=== PATIENT | female | born 1980 | race Caucasian/White ===

== ENCOUNTER 2023-02-02 14:32 | Emergency (ER) | payer BC, SELFPAY ==
[2023-02-02] VITALS (64 sets, daily range): BP systolic 89–147; BP diastolic 52–119; PULSE 71–102; RESP 14–23; TEMP 36.6; O2SAT 81–98; BMI 44.3
--- NOTE | 2023-02-02 14:34 | CT_ITS ---
[address] [address] Patient Name: СЕРГЕЙ LY MRN: [id number] date: 1980 Sex: F Assigned Patient Location: ER Current Patient Location: ER Accession/Order Number: [id number] Exam Date: 02/02/2023 15:14 Report Date: 02/02/2023 15:47 At the request of: ZHANE REES Procedure: CT abdomen pelvis w con EXAMINATION: CT abdomen pelvis w con HISTORY: abd pain COMPARISON: No relevant comparison available. TECHNIQUE: Axial, Coronal, and Sagittal images were created without IV contrast. Dose reduction techniques were achieved by using automated exposure control and/or adjustment of mA and/or kV according to patient size and/or use of iterative reconstruction technique. FINDINGS: LUNG BASES: No visible pulmonary or pleural disease. LIVER: Diffuse hypoattenuation consistent with hepatic steatosis. No focal mass BILIARY: Gallbladder wall calcification PANCREAS: No lesion, fluid collection, ductal dilatation, or atrophy. SPLEEN: No enlargement or focal lesion. ADRENALS: No mass or enlargement. KIDNEYS: No mass, obstruction, or calcification. BOWEL/MESENTERY: Wall thickening of the mid sigmoid colon with a focal partially circumscribed 5.6 x 3.6 cm heterogeneous fluid collection second smaller well-circumscribed fluid collection adjacent to the now measuring 2.1 x 1.3 cm axial image 134. Moderate colonic diverticulosis. Nonobstructive bowel gas pattern. Normal appendix. AORTA/VASCULAR: No aneurysm or dissection. RETROPERITONEUM: No mass or adenopathy. LYMPH NODES: No adenopathy. URINARY BLADDER: No visible focal wall thickening, lesion, or calculus. PELVIC ORGANS: 2.8 x 2.6 cm fluid collection adjacent to the left uterus/adnexa possibly an adnexal cyst ABDOMINAL WALL: No mass or hernia. BONES: No bony lesion or fracture. OTHER: Negative. CT/CT abdomen pelvis w con IMPRESSION: Acute diverticulitis with perforation and 5.6 cm abscess collection Electronically authenticated by: MAXWELL SANCHEZ Date: 02/02/2023 15:47
[2023-02-02 15:13] LABS: Basophils Absolute Auto 0.1 10^3/uL (0.0-0.1); Basophils Percent Auto 1.1 % (0.2-2.0); Eosinophils Absolute Auto 0.3 10^3/uL (0.0-0.7); Eosinophils Percent Auto 3.2 % (0.9-7.0); Hematocrit 41.4 % (36.0-48.0); Hemoglobin 13.6 g/dL (12.0-16.0); Immature Granulocytes Abs Auto 0.07 10^3/uL (0.00-0.03); Immature Granulocytes Pct Auto 0.7 % (0.0-0.5); Lymphocytes Absolute Auto 2.6 10^3/uL (1.2-3.8); Lymphocytes Percent Auto 24.9 % (20.5-60.0); Mean Corpuscular HGB Conc 32.9 g/dL (29.9-35.2); Mean Corpuscular Hemoglobin 29.4 pg (26.7-34.0); Mean Corpuscular Volume 89.4 fL (81.0-99.0); Mean Platelet Volume 9.5 fL (9.5-13.5); Monocytes Absolute Auto 0.6 10^3/uL (0.3-0.8); Monocytes Percent Auto 6.1 % (1.7-12.0); Neutrophils Absolute Auto 6.7 10^3/uL (1.4-6.5); Platelet Count 238 10^3/uL (150-450); Red Blood Count 4.63 10^6/uL (4.20-5.40); White Blood Count 10.4 10^3/uL (4.0-11.0)
[2023-02-02 15:26] LABS: Alanine Aminotransferase 11 U/L (14-59); Albumin Globulin Ratio 0.8; Albumin Level 3.3 g/dL (3.4-5.0); Alkaline Phosphatase 90 U/L (46-116); Anion Gap 11.7; Aspartate Amino Transferase 20 U/L (15-37); BUN Creatinine Ratio 11.8; Bilirubin Total 0.7 mg/dL (0.2-1.0); Calcium 9.2 mg/dL (8.5-10.1); Carbon Dioxide 26.2 mmol/L (21.0-32.0); Chloride 102 mmol/L (98-107); Estimated GFR (African America >60 (>=60); Estimated GFR (Non-African Ame >60 (>=60); Globulin 4.4 g/dL; Glucose 101 mg/dL (74-106); Potassium 3.9 mmol/L (3.5-5.1); Sodium 136 mmol/L (136-145); Total Protein 7.7 g/dL (6.4-8.2)
[2023-02-02 15:28] LABS: Lactate/Lactic Acid 0.9 mmol/L (0.4-2.0)
[2023-02-02] MEDS: KETOROLAC TROMETHAMINE 30 MG/ML VIAL IVP (15:39)
[2023-02-02] MEDS: 0.9 % SODIUM CHLORIDE 1,000 ML 999 ML IV (15:40)
[2023-02-02] MEDS: ONDANSETRON PF 4 MG/2 ML VIAL IV (15:40)
[2023-02-02] MEDS: PIPERACILLIN SODIUM/TAZOBACTAM 4.5 GM in 0.9 % SODIUM CHLORIDE 50 ML IV (16:24)
--- NOTE | 2023-02-02 16:33 | ED_ITS ---
HPI - Abdominal Pain General Chief Complaint: Abdominal Pain Stated Complaint: ABDOMINAL PAIN Time Seen by Provider: 02/02/23 14:34 Source: patient Mode of arrival: walk-in Limitations: no limitations History of Present Illness HPI narrative: Patient presents to the emergency department complaining of abdominal pain. Patient states she developed right lower quadrant pain radiating to her left side 3 days ago. She states the pain has intensified. She denies any nausea, vomiting, constipation. She had one loose stool today. She denies any hematochezia. She states she has some dysuria. Patient denies any fever, or chills. She had perforated diverticulitis in the past. She was treated by Dr. cruz at that time. The patient has not taken anything at home for pain.Denies any vaginal bleeding, discharge. Patient denies any trauma. pt went to see Dr. Todd and he sent her to the emergency department for evaluation. Related Data Home Medications Medication Instructions Recorded Confirmed albuterol sulfate 90 mcg/actuation 1 puff inhalation Q6H 02/02/23 02/02/23 aerosol inhaler venlafaxine 37.5 mg 37.5 mg PO DAILY 02/02/23 02/02/23 capsule,extended release 24 hr Allergies Allergy/AdvReac Type Severity Reaction Status Date / Time egg Allergy Intermediate Rash Verified 02/02/23 14:37 Review of Systems ROS Status of ROS 10 or more systems reviewed and unremarkable except as noted in history and below [facility] Medical History (Updated 02/02/23 @ 17:29 by Zhane Fernández MD) Exam Narrative Exam Narrative: Nurses notes and vital signs reviewed and patient is not hypoxic. General: Nontoxic, Well-appearing and in no apparent distress. Skin: Warm, dry, no pallor noted. No Rash Head: Normocephalic, atraumatic. Neck: Supple, non-tender. Eye: Pupils are equal, round and EOMI. No scleral icterus. Ears, Nose, Mouth, and Throat: TM clear, no posterior oropharynx erythema or nasal mucosal hypertrophy, uvula is mid-line Oral mucosa is moist Cardiovascular: Regular Rate and Rhythm without murmur, gallop or rub. Respiratory: No accessory muscle use or respiratory distress. Lungs are clear to auscultation, no wheezing, rales or rhonchi Chest Wall: no tenderness Back: No midline thoracic or lumbar vertebral tenderness. No CVA tenderness Musculoskeletal: normal ROM, no calf or popliteal tenderness, no lower extremity edema/swelling GI: obese, Abdomen is soft, non-distended. Normal bowel sounds. Diffuse moderate tenderness to palpation to llq, luq, rlq. + rebound, no guarding, or rigidity noted. Neurological: A&O x4. No cranial nerve dysfunction observed. No truncal ataxia. Moves all extremities. Sensation intact. Psychiatric: Cooperative and interactive. Normal mood and affect. Constitutional Vital Signs, click to edit/add: Last Vital Signs Temp 97.8 F 02/02/23 14:37 Pulse 79 02/02/23 17:30 Resp 14 02/02/23 17:30 BP 140/92 H 02/02/23 17:30 Pulse Ox 95 02/02/23 17:30 O2 Del Method Room Air 02/02/23 16:35 Course Vital Signs Vital signs: Vital Signs Temperature 97.8 F 02/02/23 14:37 Pulse Rate 98 H 02/02/23 14:37 Respiratory Rate 20 02/02/23 14:37 Blood Pressure 141/94 H 02/02/23 14:37 Pulse Oximetry 98 02/02/23 14:37 Oxygen Delivery Method Room Air 02/02/23 14:37 Temperature 97.8 F 02/02/23 14:37 Pulse Rate 79 02/02/23 17:30 Respiratory Rate 14 02/02/23 17:30 Blood Pressure 140/92 H 02/02/23 17:30 Pulse Oximetry 95 02/02/23 17:30 Oxygen Delivery Method Room Air 02/02/23 16:35 MDM - Abdominal Pain MDM Narrative Medical decision making narrative: Studies were done. CT scan shows perforated diverticulitis with a 6 cm abscess.Patient was started on Zosyn. Patient Name: СЕРГЕЙ YL MRN: [id number] date: 1980 Sex: F Assigned Patient Location: ER Current Patient Location: ER Accession/Order Number: [id number] Exam Date: 02/02/2023 15:14 Report Date: 02/02/2023 15:47 At the request of: ZHANE FERNÁNDEZ Procedure: CT abdomen pelvis w con EXAMINATION: CT abdomen pelvis w con HISTORY: abd pain COMPARISON: No relevant comparison available. TECHNIQUE: Axial, Coronal, and Sagittal images were created without IV contrast. Dose reduction techniques were achieved by using automated exposure control and/or adjustment of mA and/or kV according to patient size and/or use of iterative reconstruction technique. FINDINGS: LUNG BASES: No visible pulmonary or pleural disease. LIVER: Diffuse hypoattenuation consistent with hepatic steatosis. No focal mass BILIARY: Gallbladder wall calcification PANCREAS: No lesion, fluid collection, ductal dilatation, or atrophy. SPLEEN: No enlargement or focal lesion. ADRENALS: No mass or enlargement. KIDNEYS: No mass, obstruction, or calcification. BOWEL/MESENTERY: Wall thickening of the mid sigmoid colon with a focal partially circumscribed 5.6 x 3.6 cm heterogeneous fluid collection second smaller well-circumscribed fluid collection adjacent to the now measuring 2.1 x 1.3 cm axial image 134. Moderate colonic diverticulosis. Nonobstructive bowel gas pattern. Normal appendix. AORTA/VASCULAR: No aneurysm or dissection. RETROPERITONEUM: No mass or adenopathy. LYMPH NODES: No adenopathy. URINARY BLADDER: No visible focal wall thickening, lesion, or calculus. PELVIC ORGANS: 2.8 x 2.6 cm fluid collection adjacent to the left uterus/adnexa possibly an adnexal cyst ABDOMINAL WALL: No mass or hernia. BONES: No bony lesion or fracture. OTHER: Negative. IMPRESSION: Acute diverticulitis with perforation and 5.6 cm abscess collection Electronically authenticated by: MAXWELL SANCHEZ Date: 02/02/2023 15:47 Patient was given Toradol, and IV fluids. She continued to have pain is given Zofran and morphine. The patient was discussed with Dr. Herring who advised the patient needs to have the abscess drained by interventional radiology. We are not able to do this at our facility. Patient was started on Zosyn. Patient Will be discussed with [facility] surgeon advised to transfer the patient to a tertiary care center. The patient was discussed with Dr. Blanchard from [facility] [place] who has accepted the patient in transfer. Patient is still awaiting a bed at the end of my shift. She will be signed out to Dr. Jhaveri awaiting bed assignment, transportation. Lab Data Labs: Lab Results 02/02/23 Range/Units 15:05 WBC 10.4 (4.0-11.0) 10^3/uL RBC 4.63 (4.20-5.40) 10^6/uL Hgb 13.6 (12.0-16.0) g/dL Hct 41.4 (36.0-48.0) % MCV 89.4 (81.0-99.0) fL MCH 29.4 (26.7-34.0) pg MCHC 32.9 (29.9-35.2) g/dL RDW 13.0 (11.0-15.0) % Plt Count 238 (150-450) 10^3/uL MPV 9.5 (9.5-13.5) fL Neut % (Auto) 64.0 (43.0-75.0) % Lymph % (Auto) 24.9 (20.5-60.0) % Collin % (Auto) 6.1 (1.7-12.0) % Eos % (Auto) 3.2 (0.9-7.0) % Baso % (Auto) 1.1 (0.2-2.0) % Neut # (Auto) 6.7 H (1.4-6.5) 10^3/uL Lymph # (Auto) 2.6 (1.2-3.8) 10^3/uL Collin # (Auto) 0.6 (0.3-0.8) 10^3/uL Eos # (Auto) 0.3 (0.0-0.7) 10^3/uL Baso # (Auto) 0.1 (0.0-0.1) 10^3/uL Abs Immat Gran (auto) 0.07 H (0.00-0.03) 10^3/uL Imm/Tot Granulo (auto) 0.7 H (0.0-0.5) % Sodium 136 (136-145) mmol/L Potassium 3.9 (3.5-5.1) mmol/L Chloride 102 (98-107) mmol/L Carbon Dioxide 26.2 (21.0-32.0) mmol/L Anion Gap 11.7 BUN 9.0 (7.0-18.0) mg/dL Creatinine 0.76 (0.55-1.02) mg/dL Est GFR ( Amer) >60 (>=60) Est GFR (Non-Af Amer) >60 (>=60) BUN/Creatinine Ratio 11.8 Glucose 101 (74-106) mg/dL Lactate 0.9 (0.4-2.0) mmol/L Calcium 9.2 (8.5-10.1) mg/dL Total Bilirubin 0.7 (0.2-1.0) mg/dL AST 20 (15-37) U/L ALT 11 L (14-59) U/L Alkaline Phosphatase 90 (46-116) U/L Total Protein 7.7 (6.4-8.2) g/dL Albumin 3.3 L (3.4-5.0) g/dL Globulin 4.4 g/dL Albumin/Globulin Ratio 0.8 Lipase 83.0 (73.0-393.0) U/L Discharge Plan Discharge Chief Complaint: Abdominal Pain Clinical Impression: Diverticulitis of intestine with perforation and abscess Patient Disposition: Still a Patient Time of Disposition Decision: 17:28 Discharge Location: [facility] Condition: Good Mode of Transportation: EMS
[2023-02-02] MEDS: MORPHINE SULFATE 4 MG/ML VIAL IV ×3 (17:15→22:16)
[2023-02-02 18:51] LABS: Bilirubin Urine NEGATIVE (NEGATIVE); Blood Urine NEGATIVE (NEGATIVE); Clarity Urine SL CLOUDY (CLEAR); Color Urine YELLOW (YELLOW); Glucose Urine UA NEGATIVE (NEGATIVE); Ketones Urine NEGATIVE (NEGATIVE); Leukocyte Esterase Urine NEGATIVE (NEGATIVE); Nitrite Urine NEGATIVE (NEGATIVE); Protein Urine NEGATIVE (NEG/TRACE); Urobilinogen Urine 0.2 EU/dL (0.2-1.0)
[2023-02-02 22:24] LABS: Urine Microscopic Indicated NO
[2023-02-03] VITALS (61 sets, daily range): BP systolic 95–131; BP diastolic 52–89; PULSE 88; RESP 16; TEMP 37.2; O2SAT 87–96
[2023-02-03] MEDS: MORPHINE SULFATE 4 MG/ML VIAL IV ×2 (01:49→05:45)
[2023-02-03] MEDS: PIPERACILLIN SODIUM/TAZOBACTAM 3.375 GM in 0.9 % SODIUM CHLORIDE 50 ML IV (04:39)
[2023-02-03] MEDS: ONDANSETRON PF 4 MG/2 ML VIAL IV (05:45)
[2023-02-03] MEDS: 0.9 % SODIUM CHLORIDE 1,000 ML 1000 ML IV (07:59)
[2023-02-03] MEDS: HYDROMORPHONE HCL 1 MG/ML CARTRIDGE IVP (08:34)
== END 2023-02-03 10:12 | disposition short-term general hospital (02) ==
PROVIDERS: Emergency Provider Emergency Medicine; PCP Family Medicine
DX: K57.20 Diverticulitis of large intestine with perforation and abscess without bleeding (principal); Z79.899 Other long term (current) drug therapy
CPT/HCPCS: 36415; 74177; 80053; 81003; 83605; 83690; 85025; 96365; 96366; 96375; 96376; 99285; J1170; Q9967

== ENCOUNTER 2023-02-18 07:36 | Outpatient (OUT) | payer BC, SELFPAY ==
--- NOTE | 2023-02-18 07:41 | CT_ITS ---
[address] [address] Patient Name: СЕРГЕЙ LY MRN: [id number] date: 1980 Sex: F Assigned Patient Location: CT Current Patient Location: CT Accession/Order Number: [id number] Exam Date: 02/18/2023 09:06 Report Date: 02/18/2023 11:15 At the request of: NON-STAFF PHYSICIAN Procedure: CT abdomen pelvis w con EXAMINATION: CT abdomen pelvis w con HISTORY: Perforated Diverticulum K57.80 COMPARISON: 02/02/2023 TECHNIQUE: CT images were created with IV contrast. Axial, Coronal, and Sagittal images. Dose reduction techniques were achieved by using automated exposure control and/or adjustment of mA and/or kV according to patient size and/or use of iterative reconstruction technique. FINDINGS: LUNG BASES: No visible pulmonary or pleural disease. LIVER: Diffuse hypoattenuation consistent with hepatic steatosis BILIARY: Gallbladder is contracted with moderate wall calcifications but no CT evidence of acute cholecystitis PANCREAS: No lesion, fluid collection, ductal dilatation, or atrophy. SPLEEN: No enlargement or focal lesion. ADRENALS: No mass or enlargement. KIDNEYS: No mass, obstruction, or calcification. BOWEL/MESENTERY: Again demonstrated is acute diverticulitis of the proximal sigmoid colon. Percutaneous drainage catheter is identified within a collapsed abscess collection in the anterior midline pelvis axial image 127. The residual fluid/stranding appears encapsulated and measures 3.3 x 1.4 cm. Persistent thickening of the adjacent sigmoid colon wall with surrounding mesenteric stranding. Overall nonobstructive bowel gas pattern. Normal appendix. AORTA/VASCULAR: No aneurysm or dissection. RETROPERITONEUM: No mass or adenopathy. LYMPH NODES: No adenopathy. URINARY BLADDER: No visible focal wall thickening, lesion, or calculus. PELVIC ORGANS: No visible mass. Pelvic organs appropriate for patient age. ABDOMINAL WALL: No mass or hernia. BONES: No bony lesion or fracture. OTHER: Negative. CT/CT abdomen pelvis w con IMPRESSION: Sigmoid colon diverticulitis with significant decrease in size of a pericolonic abscess with normally positioned percutaneous drainage catheter Electronically authenticated by: MAXWELL SANCHEZ Date: 02/18/2023 11:15
== END 2023-02-18 07:37 | disposition home or self-care (01) ==
LOC: CT 07:36
PROVIDERS: PCP Family Medicine
DX: K57.80 Diverticulitis of intestine, part unspecified, with perforation and abscess without bleeding (principal)
CPT/HCPCS: 74177; Q9966; Q9967

== ENCOUNTER 2023-04-12 13:05 | Emergency (ER) | payer BC, SELFPAY ==
[2023-04-12 13:15] VITALS: BP 140/99; PULSE 86; RESP 20; TEMP 36.6; O2SAT 97; BMI 43.0
--- NOTE | 2023-04-12 13:20 | PC.NURSE ---
Pain, redness and swelling to right lower leg. Redness runs behind knee down leg.
--- NOTE | 2023-04-12 13:25 | US_ITS ---
The [address] [address] Patient Name: СЕРГЕЙ LY MRN: [id number] date: 1980 Sex: F Assigned Patient Location: ER Current Patient Location: ER Accession/Order Number: [id number] Exam Date: 04/12/2023 13:55 Report Date: 04/12/2023 14:42 At the request of: HARITHA TOVAR Procedure: US venous doppler LE RT EXAM: US venous doppler LE RT HISTORY: Evaluate for DVT COMPARISON: None. TECHNIQUE: Multiple sonographic images of the deep veins of the right lower extremity were obtained, supplemented with Doppler. FINDINGS: The deep veins of the right lower extremity are fairly well visualized from the groin to the mid calf. No filling defect is identified in the deep veins to indicate a thrombus. There is normal compression augmentation of flow throughout. US/US venous doppler LE RT IMPRESSION: There is no direct or indirect evidence of deep vein thrombosis in the right lower extremity at this time. Electronically authenticated by: DEBI STEPHENS Date: 04/12/2023 14:42
--- NOTE | 2023-04-12 13:26 | ED.GENADUL1 ---
HPI - General Adult General Chief complaint: Extremity Injury, Lower Stated complaint: LOWER EXTREMITY SWELLING AND PAIN RIGHT LEG Time Seen by Provider: 04/12/23 13:13 Source: patient Mode of arrival: walk-in History of Present Illness HPI narrative: patient is a 43-year-old female who presents to the emergency department for the evaluation of right medial calf redness and swelling. She states for the last two days she has had soreness to the area and developed redness that is faint today. 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 She denies any fevers, chills, nausea, vomiting. No injury to the area. No concern for . No medications taken prior to arrival. Related Data Home Medications Medication Instructions Recorded Confirmed albuterol sulfate 90 mcg/actuation 1 puff inhalation Q6H 02/02/23 02/02/23 aerosol inhaler venlafaxine 37.5 mg 37.5 mg PO DAILY 02/02/23 02/02/23 capsule,extended release 24 hr Previous Rx's Medication Instructions Recorded cephalexin 500 mg capsule 500 mg PO Q8H 7 days #21 caps 04/12/23 naproxen sodium 550 mg tablet 550 mg PO BID PRN pain #10 tabs 04/12/23 Allergies Allergy/AdvReac Type Severity Reaction Status Date / Time egg Allergy Intermediate Rash Verified 04/12/23 13:15 Review of Systems ROS Constitutional Denies: fever or chills Ears, nose, mouth, and throat Denies: throat pain Cardiovascular Denies: chest pain Respiratory Denies: shortness of breath or cough Gastrointestinal Denies: nausea or vomiting Musculoskeletal Reports: extremity pain and extremity swelling; Denies: back pain Integumentary/Breast Reports: redness; Denies: rash Hematologic/Lymphatic Denies: easy bruising or easy bleeding [facility] Medical History (Updated 04/12/23 @ 14:48 by ROBERTA Lamar) Diverticulitis ?K57.92 - Diverticulitis of intestine, part unspecified, without perforation or abscess without bleeding (ICD-10) Social History Smoking status: Former smoker Exam Narrative Exam Narrative: Gen.: Awake, alert, in no distress Head: Normocephalic, atraumatic ENT: Moist mucous membranes Respiratory: No respiratory distress Extremities: Moves extremities equally, patchy erythema noted faintly to the right medial calf, no red streaking or circumferential erythema. Mild tenderness and swelling noted in the right medial calf Psych: Normal mood and affect Neuro: No focal neuro deficit Skin: Warm, dry, intact Constitutional Vital Signs, click to edit/add: Last Vital Signs Temp 97.8 F 04/12/23 13:15 Pulse 86 04/12/23 13:15 Resp 20 04/12/23 13:15 BP 140/99 H 04/12/23 13:15 Pulse Ox 97 04/12/23 13:15 O2 Del Method Room Air 04/12/23 13:15 Course Vital Signs Vital signs: Vital Signs Temperature 97.8 F 04/12/23 13:15 Pulse Rate 86 04/12/23 13:15 Respiratory Rate 20 04/12/23 13:15 Blood Pressure 140/99 H 04/12/23 13:15 Pulse Oximetry 97 04/12/23 13:15 Oxygen Delivery Method Room Air 04/12/23 13:15 Temperature 97.8 F 04/12/23 13:15 Pulse Rate 86 04/12/23 13:15 Respiratory Rate 20 04/12/23 13:15 Blood Pressure 140/99 H 04/12/23 13:15 Pulse Oximetry 97 04/12/23 13:15 Oxygen Delivery Method Room Air 04/12/23 13:15 Medical Decision Making MDM Narrative Medical decision making narrative: ultrasound with no evidence of deep vein thrombosis or superficial thrombophlebitis. Given the patient's symptoms, we will treat with Keflex and anti-inflammatories. Follow-up with PCP, elevate the leg and return to the Emergency Room if symptoms change or worsen. Medical Records Medical records reviewed: Yes I reviewed the patient's medical records Imaging Data Venous US: Attestation: I have reviewed the pertinent imaging results. Radiologist's impression: Procedure: US venous doppler LE RT EXAM: US venous doppler LE RT HISTORY: Evaluate for DVT COMPARISON: None. TECHNIQUE: Multiple sonographic images of the deep veins of the right lower extremity were obtained, supplemented with Doppler. FINDINGS: The deep veins of the right lower extremity are fairly well visualized from the groin to the mid calf. No filling defect is identified in the deep veins to indicate a thrombus. There is normal compression augmentation of flow throughout. IMPRESSION: There is no direct or indirect evidence of deep vein thrombosis in the right lower extremity at this time. Electronically authenticated by: DEBI STEPHENS Date: 04/12/2023 14:42 Discharge Plan Discharge Chief Complaint: Extremity Injury, Lower Clinical Impression: Right calf pain Patient Disposition: Home, Self-Care Time of Disposition Decision: 14:48 Condition: Good Prescriptions / Home Meds: New cephalexin 500 mg capsule 500 mg PO Q8H 7 Days Qty: 21 0RF naproxen sodium 550 mg tablet 550 mg PO BID PRN (Reason: pain) Qty: 10 0RF No Action venlafaxine 37.5 mg capsule,extended release 24hr 37.5 mg PO DAILY albuterol sulfate 90 mcg/actuation HFA aerosol inhaler 1 puff INHALATION Q6H Instructions: Leg Pain (ED) Stand Alone Forms: Portal Instructions Referrals: KALIE GODOY [Primary Care Provider] - 1 week
== END 2023-04-12 15:10 | disposition home or self-care (01) ==
PROVIDERS: Emergency Provider Emergency Medicine; PCP Family Medicine
DX: M79.661 Pain in right lower leg (principal); Z86.711 Personal history of pulmonary embolism; Z79.899 Other long term (current) drug therapy; Z87.891 Personal history of nicotine dependence
CPT/HCPCS: 93971; 99284

== ENCOUNTER 2023-07-09 06:58 | Emergency (ER) | payer BC, SELFPAY ==
[2023-07-09 07:01] VITALS: BP 123/80; PULSE 78; RESP 18; TEMP 36.7; O2SAT 97; BMI 40.9
--- OUTSIDE RECORDS SUMMARY | 2023-07-09 07:06 | XMS_ITS | CCD ---
Author Name Unknown Address [address] [place] [address] Organization [facility] Care Team Providers Care Vehicle Body Builder Name Role Phone Alice Cota Unavailable ZHANE REES Consulting Unavailable ZHANE REES Admitting Unavailable DR EBEN DE LA CRUZ Primary Care Unavailable ZHANE REES Attending Unavailable ARACELI, DR EBEN Hughes Attending Unavailable DR EBEN DE LA CRUZ Consulting Unavailable DR EBEN DE LA CRUZ Primary Care Unavailable DR EBEN DE LA CRUZ Admitting Unavailable MD Silviano Todd. Attending Unavailable Allergies Allergy Classification Reported Allergen(s) Allergy Type Date of Onset Reaction(s) Facility (1 source) Egg; Translations: [Eggs] Propensity to adverse reactions (disorder) [facility] Repository (1 source) No Known Medication Allergies; Translations: [No Known Medication Allergies] Propensity to adverse reactions (disorder) [facility] Rep[facility] Medications Current Medications Medication Drug Class(es) Dates Sig (Normalized) Sig (Original) amoxicillin 875 mg oral tablet (1 source) Penicillin-class Antibacterial Start: 03-11-2022 take 1 tablet by mouth every eight hours Amoxicillin 875 MG 1 tablet Orally every 8 hrs for 10 day(s) Feb, Active chlorhexidine gluconate 1.2 mg/ml mouthwash (1 source) Start: 03-11-2022 take 10 mL by mouth twice daily Peridex 0.12 % gargle 10 ml Mouth/Throat twice daily Feb, Active ibuprofen 600 mg oral tablet (2 sources) Nonsteroidal Anti-inflammatory Drug take 1 tablet by mouth three times daily at mealtime as needed Ibuprofen 600 MG 1 tablet with food or milk as needed Orally Three times a day Active Advil Active venlafaxine (1 source) Serotonin and Norepinephrine Reuptake Inhibitor Effexor Active Problems Active Problems Problem Classification Problem Date Documented Da te Episodic/Chronic Acute bronchitis (1 source) Acute bronchitis; Translations: [Acute bronchitis] Episodic Asthma (1 source) Unspecified asthma, uncomplicated; Translations: [UNSPECIFIED ASTHMA UNCOMPLICATED] Onset: 03-16-2022 Chronic Conduction disorders (1 source) Pre-excitation syndrome; Translations: [PRE-EXCITATION SYNDROME] Onset: 03-16-2022 Chronic Disorders of teeth and jaw (6 sources) Periapical abscess without sinus; Translations: [Other specified disorders of teeth and supporting structures] Onset: 03-14-2022 Episodic Pulmonary heart disease (1 source) Personal history of pulmonary embolism; Translations: [PERSONAL HISTORY PULMONARY EMBOLISM] Onset: 03-16-2022 Episodic Unclassified (3 sources) CONTACT W/AND (SUSP) EXPOS COVID-19; Translations: [CONTACT W/AND (SUSP) EXPOS COVID-19] Onset: 06-04-2021 Past or Other Problems Problem Classification Problem Date Documented Da te Episodic/Chronic Unclassified (1 source) CONTACT W/AND (SUSP) EXPOS COVID-19; Translations: [CONTACT W/AND (SUSP) EXPOS COVID-19] Onset: 06-01-2021 Results Test Name Value Interpretation Reference Range Facil ity Discharge Documentationon Discharge Documentation [id number] #1.00TIFF Normal [facility] ED Note-Physicianon 05-18-20 ED Note-Physician [id number] #1.00TIFF Normal [facility] Outside Hospital Correspo ndenceon 05-18-2023 Outside Hospital Correspondence [id number] #1.00TIFF Normal [facility] RAD - Ultrasound Reporton RAD - Ultrasound Report [id number] #1.00TIFF Normal [facility] Admission Noteon 05-09-2023 Admission Note [id number] #1.00TIFF Normal [facility] Discharge Documentationon Discharge Documentation [id number] #1.00TIFF Normal [facility] Operative Reporton Operative Report [id number] #1.00TIFF Normal [facility] ED Note-Physicianon 04-14-20 ED Note-Physician [id number]# 1.00TIFF Normal [facility] RAD - Ultrasound Reporton RAD - Ultrasound Report [id number]# 1.00TIFF Normal [facility] Consultation Noteon 03-31-20 Consultation Note [id number] #1.00TIFF Normal [facility] Consultation Note [id number] #1.00TIFF [facility] RAD - CT Reporton 02-22-2023 RAD - CT Report [id number] #1.00CD:127 Normal [facility] RAD - CT Reporton 02-09-2023 RAD - CT Report [id number] #1.00CD:127 Normal [facility] Ambulatory Visit Summaryon 0 02-02-2023 Ambulatory Visit Summary СЕРГЕЙ LY :1980 Visit Date:02/02/2023 Ambulatory Visit Instructions Your Diagnosis Anxiety Thyroiditis, subacute Arthralgia, unspecified joint Shortness of breath BMI 40.0-44.9, adult Former smoker Your Care Team Attending Physician - Silviano Todd MD Primary Care Physician - Silviano Todd MD This Is Your Medications List albuterol (Albuterol (Eqv-ProAir HFA) 90 mcg/inh inhalation aerosol) venlafaxine (venlafaxine 37.5 mg Cap-ER) Procedures Performed Cardiac arrhythmia, section, Oophorectomy, T and A (tonsillectomy and adenoidectomy) postoperative education. Discharge Vitals Heart Rate (Peripheral) 88 Respiratory Rate 18 Blood Pressure 144/76 Height 177.8 cm Height 70 in Weight 140.2 kg Weight 308.44 lb BMI 44.35 Medications What How Much When Instructions Unchanged albuterol (Albuterol (Eqv-ProAir HFA) 90 mcg/ inh inhalation aerosol) 2 Puffs Inhalation Every 4 hours as needed for Shortness of breath or wheezing Unchanged venlafaxine (venlafaxine 37.5 mg Cap-ER) 1 Capsules By Mouth Every day Allergies Eggs (Unknown) Problems Ongoing - Any problem that you are currently receiving treatment for. Anxiety Arthralgia COVID-19 DVT (deep venous thrombosis) Shortness of breath Thyroiditis, subacute Historical - Any problem that you are no longer receiving treatment for. Blood clotting disorder Irregular Normal [facility] Family Medicine Office/Clini c Noteon 02-02-2023 Family Medicine Office/Clinic Note HPI Staff Сергей is a 42 year old female presenting for acute visit, former pt of Dr De La Cruz's Acute: lower right sided abd pain Pain characteristics: Pain location: Lower abdominal pain Intensity:2-3 Onset: About 4 days Medication used: Advil Opioids prescribed: Medication agreement UTD: _ Urine drug screen performed:_ flu vaccine: Questions/Concerns: Pt would like new RX for Symbicort she is unsure what the dose was due to having increased SOB Pt states when going to have a bm or urinate there is pressure in abdominal feels like balloons blowing up. History of Present Illness - Abdominal pain since Tuesday. - Worsened recently - Worse with BMS - Advil does help Review of Systems PHQ Score Initial Depression Screen Score: 1 Physical Exam Vitals & Measurements HR: 88(Peripheral) RR: 18 BP: 144/76 SpO2: 95% HT: 70 in HT: 177.8 cm WT: 140.2 kg WT: 308.44 lb BMI: 44.35 General: alert, no acute distress ENMT: oral mucosa moist, Cardiovascular: regular rate and rhythm, normal peripheral perfusion Respiratory: Lungs CTA, respirations non labored Extremities: no deformity, no trauma Neurological: oriented x 4, LOC appropriate for age, CN II-XII intact, motor strength equal & normal bilaterally, speech normal Abdomen: Soft, diffusely tender, but worse in the RLQ, Non-distended, + BS, NO rebound or guarding Assessment/Plan 1. Abdominal pain (R10.9: Unspecified abdominal pain) - Because of how severe the pain is, I am concerned what is causing this pain. - Called the ER to discuss - Pt is agreeable to go to the ER - Will see after 2. Shortness of breath (R06.02: Shortness of breath) - Will refill meds today but discuss further 3. BMI 40.0-44.9, adult (Z68.41: Body mass index [BMI] 40.0-44.9, adult) - BMI education given 4. Former smoker (Z87.891: Personal history of nicotine dependence) - Please continue not to smoke. Orders: budesonide-formotero l, 2 puff(s), Inhalation, BID, 1 EA, Refill(s) 0, [id number], 177.8, cm, 02/02/23 14:03:00 EDT, Height/Length Dosing, 140.2, kg, 02/02/23 14:03:00 EDT, Weight Dosing Follow-up No qualifying data available Problem List/Past Medical History Ongoing Abdominal pain Anxiety Arthralgia COVID-19 DVT (deep venous thrombosis) Shortness of breath Thyroiditis, subacute Historical Blood clotting disorder Irregular Procedure/Surgical History Cardiac arrhythmia, section, Oophorectomy, T and A (tonsillectomy and adenoidectomy) postoperative education. Medications Albuterol (Eqv-ProAir HFA) 90 mcg/inh inhalation aerosol, 2 puff(s), Inhalation, q4hr, PRN Symbicort 160/4.5 inhalation aerosol with adapter, 2 puff(s), Inhalation, BID venlafaxine 37.5 mg Cap-ER, 37.5 mg= 1 cap(s), Oral, Daily Allergies Eggs (Unknown) Social History Tobacco Former smoker, quit more than 30 days ago Tobacco Use:. Cigarettes, 02/02/2023 Family History COPD: Mother. Congenital heart disease: Brother. Diabetes mellitus type 1: Grandparent. Heart disease: Mother. Primary malignant neoplasm of brain: Grandparent. Immunizations Vaccine Date Status Comments SARS-CoV-2 (COVID-19) Ad26 vaccine 08/29/2020 Recorded 2023-02-02: TPVAL diphtheria/pertussis , acel/tetanus adult 05/03/2016 Given Normal [facility] Comment on above: Result Comment: Elec tronically Signed By: Perez LIU, Silviano Bunn.[email or web address]\Date and Time Signed: 02/02/23 14:28 EDT Covid-19 PCR (CVDTB)on SARS-CoV-2 (COVID-19) RNA ANGIE+probe Ql (Unsp spec) Not detected Normal NOT DETECTED [facility] Comment on above: Result Comment: This test is not yet approved or cleared by the [place] FDA. When there are no FDA-approved or cleared tests available, and other criteria are met, FDA can make tests available under an emergency access mechanism called an Emergency Use Authorization (EUA). The EUA for this test is supported by the Three Dimensional Map Modeler of Health and Human Service's (HHS's) declaration that circumstances exist to justify the emergency use of in vitro diagnostics for the detection and/or diagnosis of the virus that causes COVID-19. This EUA will remain in effect (meaning this test can be used) for the duration of the COVID-19 declaration justifying emergency of IVDs, unless it is terminated or revoked by FDA (after which the test may no longer be used). When diagnostic testing is negative, the possibility of a false negative should be considered in the context of a patient's recent exposures and the presence of clinical signs and symptoms consistent with SARS-CoV-2. Performed By: #### [facility] #### [facility] [address] [place] [address] Dr. Heath Baig Vital Signs Date Time Vital Sign Value Performing Clinician Facility 03-11-2022 11:00-0400 Body height 180.34 cm Alice Cota Other [facility] Other 03-11-2022 11:00-0400 Body mass index (BMI) [Ratio] 44.35 kg/m2 Alice Cota Other [facility] Other 03-11-2022 11:00-0400 Body temperature 97.6 [degF] Alice Cota Other [facility] Other 03-11-2022 11:00-0400 Body weight 144.24 kg Alice Cota Other [facility] Other 03-11-2022 11:00-0400 Diastolic blood pressure 84 mm[Hg] Alice Cipriano Other [facility] Other 03-11-2022 11:00-0400 Respiratory rate 18 /min Alice Pooleault Other [facility] Other 03-11-2022 11:00-0400 SaO2% (BldA) [Mass fraction] 98 % Alice Cota Other [facility] Other 03-11-2022 11:00-0400 Systolic blood pressure 139 mm[Hg] Alice Pooleault Other [facility] Other Encounters Encounter Date Encounter Type Care Provider Facility Start: 04-06-2023 ambulatory MD Silviano Todd Facility :[facility] Start: 03-03-2023 ambulatory MD Silviano Todd Facility : [facility] Start: 02-02-2023 End: 02-03-2023 ambulatory MD Silviano Todd Facility:[facility] Start: 03-14-2022 End: 03-14-2022 ambulatory ZHANE REES Facility: Start: 03-11-2022 End: 03-11-2022 ambulatory Alice Cota Other [facility] Start: 03-11-2022 Office outpatient ne w 20 minutes Alice Cota [facility] Start: 06-01-2021 End: 06-01-[address] EBEN DE LA CRUZ Facility:[facility] Payers Date Payer Category Payer Unknown [id number] 2.16.84 [id number] 1980 Unknown [id number] 2.16.84 [id number] 1980 Unknown [id number] [id number] [id number] 1980 Unknown [id number] [id number] [id number] 1957 [facility] [id number] 1957 Unknown [id number] Social History Date Type Detail Facility Sex Assigned At [facility] Other Evaluation note 03-11-2022 Note Date & Type Note Facility 03-11-2022 Evaluation note Encounter Date Diagnosis Assessment Notes Feb, Infected tooth (ICD-10 - K04.7) Take medications as directed.Highly encourage patient to contact dentist LALITHA for further treatment of infection. Do not take OTC medications like ibuprofen with prescriptions [facility] Other History general Narrative - Reported Note Date & Type Note Facility History general Narrative - Reported Type Medical History WPW-HEART Medical History chronic depression Medical History anxiety Surgical History Tonsillectomy Surgical History D&C Surgical History Surgical History 3 [facility] Other Summary Purpose Family History No Family History Records FoundNo Family History Records Found Advance Directives No Advanced Directives Records FoundNo Advanced Directives Records Found Additional Source Comments REASON FOR VISIT (unrecogniz ed section and content) POSS TOOTH INFECTION INFORMATION SOURCE (unrecogn ized section and content) DATE CREATED AUTHOR 05/21/2022 [facility] DATE CREATED AUTHOR AUTHOR'S ORGANIZ ATION 05/19/2023 [facility] FOR RECORDS PERTAINING TO PATIENTS WHO ARE OR HAVE BEEN ENROLLED IN A CHEMICAL DEPENDENCY/SUBSTANCEABUSE PROGRAM, SOME INFORMATION MAY BE OMITTED. This clinical summary was aggregated from multiple sources. Caution should be exercised in using it in the provision of clinical care. This summary normalizes information from multiple sources, and as a consequence, information in this document may materially change the coding, format and clinical context of patient data. In addition, data may be omitted in some cases. CLINICAL DECISIONS SHOULD BE BASED ON THE PRIMARY CLINICAL RECORDS. [facility] [employer] [facility]. provides no warranty or guarantee of the accuracy or completeness of information in this document.
--- NOTE | 2023-07-09 07:13 | CT_ITS ---
The [address] [address] Patient Name: СЕРГЕЙ LY MRN: [id number] date: 1980 Sex: F Assigned Patient Location: ER Current Patient Location: ER Accession/Order Number: [id number] Exam Date: 07/09/2023 08:15 Report Date: 07/09/2023 09:23 At the request of: ROSA DWYER Procedure: CT abdomen pelvis w con CT abdomen pelvis w con, 07/09/2023 8:15 AM EST INDICATION: Abdominal pain post resection left lower quadrant COMPARISON: CT the abdomen and pelvis 02/18/2023, 02/02/2023 TECHNIQUE: Axial images of the abdomen and pelvis were obtained after the administration of IV contrast. Multiplanar reformatted images were generated and reviewed as needed. Dose reduction techniques were achieved by using automated exposure control and/or adjustment of mA and/or kV according to patient size and/or use of iterative reconstruction technique. FINDINGS: No consolidation or effusion. Small focus of dependent atelectasis right lower lobe, unchanged. Diffuse fatty infiltration within an enlarged liver. Focal wall calcification and small gallstone within a contracted gallbladder. The spleen is 17 cm in AP dimension. Pancreas and adrenals unremarkable. Symmetric nephrograms without evidence of obstruction. No ureteral lithiasis. No aortic aneurysm. No bowel obstruction. Normal appendix. Colonic diverticulosis. Patent sigmoid surgical anastomosis. Circumferential bowel wall thickening with adjacent pericolonic fat stranding proximal sigmoid colon. 1.8 x 5.4 cm abscess adjacent to the sigmoid colon with thin channel in direct communication to a 5.4 x 4.6 x 8.5 cm multi septated cystic left adnexal mass. Midline lower ventral pelvis adjacent to the sigmoid colon is a thick walled collection with very minimal fluid and large volume of air extending to the ventral abdominal wall with significant adjacent fat stranding and phlegmon. 6.1 x 5.1 cm rim-enhancing fluid collection subcutaneous tissues left lower quadrant with thin portion of this collection extending through the left rectus abdominous muscle to tiny focal collection in the adjacent peritoneum the peritoneum in the location of prior percutaneous pigtail catheter. Prominent retroperitoneal lymph nodes bilaterally, the largest a left external iliac lymph node 1.1 cm short axis. No additional significant findings on limited delayed imaging through the pelvis. No acute fracture. CT/CT abdomen pelvis w con IMPRESSION: 1. Persistent inflammation of the sigmoid colon with multiple pelvic abscesses . Abscess within the subcutaneous tissues ventral abdominal wall of the left lower quadrant with likely sinus tract traversing the left rectus abdominal muscles to small fluid collection in the ventral abdomen. Additional fluid collection midline ventral abdomen adjacent to the sigmoid colon likely representing sinus tract or fistula formation. 2. Focal collection within the left lower quadrant adjacent to the sigmoid colon with tract directly communicating with a large complex cystic left adnexal mass. Differential considerations include: [place]-ovarian fistula with left tubo-ovarian abscess, sinus tract communicating from pericolonic abscess with findings concerning for left tubo-ovarian abscess. 3. Retroperitoneal lymphadenopathy, likely reactive. Electronically authenticated by: ALMAS LOCKE Date: 07/09/2023 09:23
[2023-07-09] MEDS: 0.9 % SODIUM CHLORIDE 1,000 ML 1000 ML IV (07:21)
[2023-07-09 07:25] LABS: Basophils Absolute Auto 0.1 10^3/uL (0.0-0.1); Basophils Percent Auto 0.8 % (0.2-2.0); Eosinophils Absolute Auto 0.1 10^3/uL (0.0-0.7); Eosinophils Percent Auto 0.9 % (0.9-7.0); Hematocrit 36.2 % (36.0-48.0); Hemoglobin 11.2 g/dL (12.0-16.0); Immature Granulocytes Abs Auto 0.04 10^3/uL (0.00-0.03); Immature Granulocytes Pct Auto 0.4 % (0.0-0.5); Lymphocytes Absolute Auto 1.6 10^3/uL (1.2-3.8); Lymphocytes Percent Auto 15.2 % (20.5-60.0); Mean Corpuscular HGB Conc 30.9 g/dL (29.9-35.2); Mean Corpuscular Hemoglobin 27.3 pg (26.7-34.0); Mean Corpuscular Volume 88.1 fL (81.0-99.0); Mean Platelet Volume 9.3 fL (9.5-13.5); Monocytes Absolute Auto 0.5 10^3/uL (0.3-0.8); Monocytes Percent Auto 5.3 % (1.7-12.0); Neutrophils Absolute Auto 7.9 10^3/uL (1.4-6.5); Neutrophils Percent Auto 77.4 % (43.0-75.0); Platelet Count 271 10^3/uL (150-450); Red Blood Count 4.11 10^6/uL (4.20-5.40); White Blood Count 10.2 10^3/uL (4.0-11.0)
[2023-07-09 07:37] LABS: HCG Qualitative NEGATIVE (NEGATIVE)
[2023-07-09 07:38] LABS: Alanine Aminotransferase 8 U/L (14-59); Albumin Globulin Ratio 0.5; Albumin Level 2.6 g/dL (3.4-5.0); Alkaline Phosphatase 81 U/L (46-116); Anion Gap 13.5; Aspartate Amino Transferase 15 U/L (15-37); BUN Creatinine Ratio 10.3; Bilirubin Total 0.6 mg/dL (0.2-1.0); Calcium 8.6 mg/dL (8.5-10.1); Carbon Dioxide 26.2 mmol/L (21.0-32.0); Chloride 100 mmol/L (98-107); Estimated GFR (African America >60 (>=60); Estimated GFR (Non-African Ame >60 (>=60); Globulin 5.2 g/dL; Glucose 169 mg/dL (74-106); Potassium 3.7 mmol/L (3.5-5.1); Sodium 136 mmol/L (136-145); Total Protein 7.8 g/dL (6.4-8.2)
--- NOTE | 2023-07-09 07:39 | ED.ABDPAIN1 ---
HPI - Abdominal Pain General Chief Complaint: Abdominal Pain Stated Complaint: ABD PAIN Time Seen by Provider: 07/09/23 07:07 Source: patient Mode of arrival: walk-in Limitations: no limitations History of Present Illness HPI narrative: The patient is presenting to the ER after she had an extensive history of colectomy in April due to diverticulitis preceded by a drainage in her left lower quadrant of the abdomen that was not efficient so they had to go for colectomy . The patient had no good appetite since she has been discharged she did mention having some nausea but no vomiting . No change in bowel movement she also noted that in the left lower quadrant of her abdomen she noticed some swelling in the area that she had a drainage before and that has been going on at least for the next 5 days . Related Data Home Medications Medication Instructions Recorded Confirmed albuterol sulfate 90 mcg/actuation 1 puff inhalation Q6H 02/02/23 02/02/23 aerosol inhaler venlafaxine 37.5 mg 37.5 mg PO DAILY 02/02/23 02/02/23 capsule,extended release 24 hr Previous Rx's Medication Instructions Recorded cephalexin 500 mg capsule 500 mg PO Q8H 7 days #21 caps 04/12/23 naproxen sodium 550 mg tablet 550 mg PO BID PRN pain #10 tabs 04/12/23 Allergies Allergy/AdvReac Type Severity Reaction Status Date / Time egg Allergy Intermediate Rash Verified 04/12/23 13:15 Review of Systems ROS Status of ROS 10 or more systems reviewed and unremarkable except as noted in history and below [facility] Medical History (Updated 07/09/23 @ 10:19 by Lilia Hernandez MD) Diverticulitis ?K57.92 - Diverticulitis of intestine, part unspecified, without perforation or abscess without bleeding (ICD-10) Social History Smoking status: Former smoker Exam Narrative Exam Narrative: Nurses notes and vital signs reviewed and patient is not hypoxic. General: Well-appearing and in no apparent distress. Skin: Warm, dry, no pallor noted. No rash. Head: Normocephalic, atraumatic. Neck: Supple, non-tender. Eye: Pupils are equal, round and EOMI. No scleral icterus. Ears, Nose, Mouth, and Throat: TM are clear, no nasal mucosal hypertrophy. Oral mucosa is moist, no posterior oropharynx erythema, uvula is mid-line Cardiovascular: Regular Rate and Rhythm without murmur, gallop or rub. Respiratory: No accessory muscle use or respiratory distress. Lungs are clear to auscultation, no wheezing, rales or rhonchi Chest Wall: no tenderness Back: No midline thoracic or lumbar vertebral tenderness. No CVA tenderness Musculoskeletal: normal ROM, no calf or popliteal tenderness, no lower extremity edema/swelling GI: Abdomen is soft, the patient have healing scars of previous surgery in the abdomen and in the left lower quadrant there is an area of 4-5 cm of tenderness and oval swelling around the scare where the drain was . and tenderness on palpation , no fluctuation . Neurological: A&O x4. No cranial nerve dysfunction observed. No truncal ataxia. Moves all extremities. Sensation intact. Psychiatric: Cooperative and interactive. Normal mood and affect. Constitutional Vital Signs, click to edit/add: Last Vital Signs Temp 98.0 F 07/09/23 07:01 Pulse 78 07/09/23 07:01 Resp 18 07/09/23 07:01 BP 123/80 07/09/23 07:01 Pulse Ox 97 07/09/23 07:01 O2 Del Method Room Air 07/09/23 07:01 Course Vital Signs Vital signs: Vital Signs Temperature 98.0 F 07/09/23 07:01 Pulse Rate 78 07/09/23 07:01 Respiratory Rate 18 07/09/23 07:01 Blood Pressure 123/80 07/09/23 07:01 Pulse Oximetry 97 07/09/23 07:01 Oxygen Delivery Method Room Air 07/09/23 07:01 Temperature 98.0 F 07/09/23 07:01 Pulse Rate 78 07/09/23 07:01 Respiratory Rate 18 07/09/23 07:01 Blood Pressure 123/80 07/09/23 07:01 Pulse Oximetry 97 07/09/23 07:01 Oxygen Delivery Method Room Air 07/09/23 07:01 MDM - Abdominal Pain MDM Narrative Medical decision making narrative: The patient CBC and chemistry showed no acute pathology. Negative test The patient also had a CAT scan with contrast showing the above-mentioned result of multiple abscesses, Blood culture obtained and the patient was started on Cipro and Flagyl. The patient case was discussed with the surgeon on-call for [facility] where the patient had her surgery and Dr. Hernandez who request the patient to be transferred to [facility] ER Dr. Arrington accepted the patient as well The patient requested to be transferred with her in a private car as she is worried about financial issue, per the wording of the pt ( still [place]we [id number] from her last transfer ) Right now the patient is stable and as long as she is agreeable to go directly to the ER which she is the patient will have the IV in place and she will be directed to go to the ER directly with nothing per mouth Lab Data Labs: Lab Results 07/09/23 Range/Units 07:15 WBC 10.2 (4.0-11.0) 10^3/uL RBC 4.11 L (4.20-5.40) 10^6/uL Hgb 11.2 L (12.0-16.0) g/dL Hct 36.2 (36.0-48.0) % MCV 88.1 (81.0-99.0) fL MCH 27.3 (26.7-34.0) pg MCHC 30.9 (29.9-35.2) g/dL RDW 14.0 (11.0-15.0) % Plt Count 271 (150-450) 10^3/uL MPV 9.3 L (9.5-13.5) fL Neut % (Auto) 77.4 H (43.0-75.0) % Lymph % (Auto) 15.2 L (20.5-60.0) % Hays % (Auto) 5.3 (1.7-12.0) % Eos % (Auto) 0.9 (0.9-7.0) % Baso % (Auto) 0.8 (0.2-2.0) % Neut # (Auto) 7.9 H (1.4-6.5) 10^3/uL Lymph # (Auto) 1.6 (1.2-3.8) 10^3/uL Hays # (Auto) 0.5 (0.3-0.8) 10^3/uL Eos # (Auto) 0.1 (0.0-0.7) 10^3/uL Baso # (Auto) 0.1 (0.0-0.1) 10^3/uL Abs Immat Gran (auto) 0.04 H (0.00-0.03) 10^3/uL Imm/Tot Granulo (auto) 0.4 (0.0-0.5) % Sodium 136 (136-145) mmol/L Potassium 3.7 (3.5-5.1) mmol/L Chloride 100 (98-107) mmol/L Carbon Dioxide 26.2 (21.0-32.0) mmol/L Anion Gap 13.5 BUN 9.0 (7.0-18.0) mg/dL Creatinine 0.87 (0.55-1.02) mg/dL Est GFR ( Amer) >60 (>=60) Est GFR (Non-Af Amer) >60 (>=60) BUN/Creatinine Ratio 10.3 Glucose 169 H (74-106) mg/dL Calcium 8.6 (8.5-10.1) mg/dL Total Bilirubin 0.6 (0.2-1.0) mg/dL AST 15 (15-37) U/L ALT 8 L (14-59) U/L Alkaline Phosphatase 81 (46-116) U/L Total Protein 7.8 (6.4-8.2) g/dL Albumin 2.6 L (3.4-5.0) g/dL Globulin 5.2 g/dL Albumin/Globulin Ratio 0.5 Serum HCG, Qual Negative (NEGATIVE) Discharge Plan Discharge Chief Complaint: Abdominal Pain Clinical Impression: Intra-abdominal abscess Patient Disposition: [facility] Time of Disposition Decision: 10:18 Condition: Good
[2023-07-09] MEDS: METRONIDAZOLE/SODIUM CHLORIDE 500 MG/100 ML PREMIX 100 MG IV (10:21)
[2023-07-09] MEDS: CIPROFLOXACIN IN 5 % DEXTROSE 400 MG/200 ML PIGGYBACK 200 MG IV (11:29)
[2023-07-09 11:59] VITALS: BP 139/80; PULSE 79; RESP 18; TEMP 36.7; O2SAT 99
== END 2023-07-09 12:22 | disposition short-term general hospital (02) ==
PROVIDERS: Emergency Provider Emergency Medicine; PCP Family Medicine
DX: K65.1 Peritoneal abscess (principal); Z90.49 Acquired absence of other specified parts of digestive tract; Z79.899 Other long term (current) drug therapy; Z87.891 Personal history of nicotine dependence
CPT/HCPCS: 36415; 74177; 80053; 84703; 85025; 87040; 96365; 96375; 99285; J0744; J1836; Q9967

== ENCOUNTER 2023-07-28 15:01 | Outpatient (REF) | payer BC, SELFPAY ==
[2023-07-28 15:23] LABS: Basophils Absolute Auto 0.1 10^3/uL (0.0-0.1); Basophils Percent Auto 1.1 % (0.2-2.0); Eosinophils Absolute Auto 0.3 10^3/uL (0.0-0.7); Eosinophils Percent Auto 4.5 % (0.9-7.0); Hematocrit 35.8 % (36.0-48.0); Hemoglobin 11.4 g/dL (12.0-16.0); Immature Granulocytes Abs Auto 0.04 10^3/uL (0.00-0.03); Immature Granulocytes Pct Auto 0.5 % (0.0-0.5); Lymphocytes Absolute Auto 2.6 10^3/uL (1.2-3.8); Lymphocytes Percent Auto 34.7 % (20.5-60.0); Mean Corpuscular HGB Conc 31.8 g/dL (29.9-35.2); Mean Corpuscular Hemoglobin 28.1 pg (26.7-34.0); Mean Corpuscular Volume 88.2 fL (81.0-99.0); Mean Platelet Volume 10.3 fL (9.5-13.5); Monocytes Absolute Auto 0.4 10^3/uL (0.3-0.8); Neutrophils Absolute Auto 4.1 10^3/uL (1.4-6.5); Neutrophils Percent Auto 54.2 % (43.0-75.0); Platelet Count 223 10^3/uL (150-450); Red Blood Count 4.06 10^6/uL (4.20-5.40); Red Cell Distribution Width 16.1 % (11.0-15.0); White Blood Count 7.6 10^3/uL (4.0-11.0)
[2023-07-28 15:33] LABS: Alanine Aminotransferase 23 U/L (14-59); Albumin Globulin Ratio 0.6; Albumin Level 2.9 g/dL (3.4-5.0); Alkaline Phosphatase 88 U/L (46-116); Anion Gap 10.9; Aspartate Amino Transferase 35 U/L (15-37); BUN Creatinine Ratio 26.3; Bilirubin Total 0.2 mg/dL (0.2-1.0); Calcium 8.7 mg/dL (8.5-10.1); Carbon Dioxide 27.4 mmol/L (21.0-32.0); Chloride 103 mmol/L (98-107); Estimated GFR (African America >60 (>=60); Estimated GFR (Non-African Ame >60 (>=60); Globulin 4.7 g/dL; Glucose 110 mg/dL (74-106); Magnesium 1.7 mg/dL (1.8-2.4); Phosphorus 4.2 mg/dL (2.6-4.7); Potassium 4.3 mmol/L (3.5-5.1); Sodium 137 mmol/L (136-145); Total Protein 7.6 g/dL (6.4-8.2); Triglycerides 186 mg/dL (<=150)
== END 2023-07-28 15:02 | disposition home or self-care (01) ==
LOC: LAB 15:01
PROVIDERS: PCP Family Medicine
DX: Z79.899 Other long term (current) drug therapy (principal)
CPT/HCPCS: 36415; 80053; 83735; 84100; 84478; 85025

== ENCOUNTER 2023-08-04 09:53 | Outpatient (REF) | payer BC, SELFPAY ==
--- OUTSIDE RECORDS SUMMARY | 2023-08-04 09:57 | XMS_ITS | CCD ---
Author Name Unknown Address [address] [place] [address] Organization [facility] Care Team Providers Care Chestnut Tanner Name Role Phone Alice Cota Unavailable ZHANE REES Consulting Unavailable ZHANE REES Admitting Unavailable DR EBEN DE LA CRUZ Primary Care Unavailable ZHANE REES Attending Unavailable ARACELI, DR EBEN Hughes Attending Unavailable DR EBEN DE LA CRUZ Consulting Unavailable DR EBEN DE LA CRUZ Primary Care Unavailable DR EBEN DE LA CRUZ Admitting Unavailable MD Silviano Todd Admitting Unavailable MD Silviano Todd Attending Unavailable Allergies Allergy Classification Reported Allergen(s) Allergy Type Date of Onset Reaction(s) Facility (1 source) Egg; Translations: [Eggs] Propensity to adverse reactions (disorder) [facility] Repository (1 source) No Known Medication Allergies; Translations: [No Known Medication Allergies] Propensity to adverse reactions (disorder) [facility] Repository Medications Current Medications Medication Drug Class(es) [...] Results Test Name Value Interpretation Reference Range [facility] 08-01-19 [facility] Case Information Case Priority: None Programs: -- Referral Source: Remote Inpatient Coder Referral Reason: Care coordination Case Type: Transition Care Management Risk Score: -- Case Status: Enrolled (July 27, 2023) Date Assigned: July 22, 2023 Assigned By: Omer Thompson Date Enrolled: July 27, 2023 Assigned Primary Personnel: Omer Thompson Assigned Secondary Personnel: -- Case Physician: Silviano Todd MD Ongoing Abdominal pain Anxiety Arthralgia COVID-19 Diverticula of colon DVT (deep venous thrombosis) Shortness of breath Thyroiditis, subacute Historical Blood clotting disorder Irregular Procedure/Surgical History Cardiac arrhythmia, section, Oophorectomy, T and A (tonsillectomy and adenoidectomy) postoperative education. Home Medications Albuterol (Eqv-ProAir HFA) 90 mcg/inh inhalation aerosol, 2 puff(s), Inhalation, q4hr, PRN budesonide-formotero l 160 mcg-4.5 mcg/inh Inh Aer w/adapter, See Instructions venlafaxine 37.5 mg Cap-ER, See Instructions Xarelto, 20 mg, Oral, qPM Allergies Eggs (Unknown) Social History Tobacco Former smoker, quit more than 30 days ago Tobacco Use:. Cigarettes, 02/02/2023 Family History COPD: Mother. Congenital heart disease: Brother. Diabetes mellitus type 1: Grandparent. Heart disease: Mother. Primary malignant neoplasm of brain: Grandparent. Screenings and Assessments 07/27/23 13:20:00 Result Name Value Comment Phone Call Monitoring Consent Agreed to continue call Phone Verification Patient Information Full name, street address and date of verified CM Program Enrollment Provides verbal consent for enrollment Goals and Interventions Care Plan Progress Note TCM#2- Patient states she is 'doing good.' Denies any abdominal pain or discomfort. States she does have some discomfort just from her drain. Notes <10cc of drainage per day. Patient has appointment with Dr Javier to have drain removed in the near future. Patient states home health will be out today to change central line dressing. Denies any discomfort at CL site. Patient is on TPN and full liquid diet. No change in sleep pattern noted. Patient denies any bowel or urinary issues. Patient declines to arrange for follow up at this time. Patient denies any further questions or concerns. Communication Events Date: August 01, 2023 Method: Phone call Type: Outbound Duration (min): 3 Outcome: Case discussion Contact Type: development coordinator Contact Name: Omer Thompson Notes: TCM#2- see tcm note. Created By: Omer Thompson Date: July 27, 2023 Method: Phone call Type: Outbound Duration (min): 7 Outcome: Case discussion Contact Type: development coordinator Contact Name: Omer Thompson Notes: TCM#1- returned missed call to patient- see tcm note. Created By: Omer Thompson Date: July 25, 2023 Method: Phone call Type: Outbound Duration (min): 1 Outcome: Left message-voicemail Contact Type: development coordinator Contact Name: Omer Thompsno Notes: TCM#1- Third attmept to contact patient, unable to contact letter sent, see pt summary. Created By: Omer Thompson Date: July 22, 2023 Method: Phone call Type: Outbound Duration (min): 1 Outcome: Left message-voicemail Contact Type: development coordinator Contact Name: Omer Thompson Notes: TCM#1- no answer, left vm for return call. Created By: Omer Thompson Date: July 21, 2023 Method: Phone call Type: Outbound Duration (min): 1 Outcome: Left message-voicemail Contact Type: development coordinator Contact Name: Omer Thompson Notes: TCM#1- attempted to reach patient, no answer, left vm for return call. Created By: Omer Thompson [facility] 07-27-19 [facility] Case Information Case Priority: None Programs: -- Referral Source: Remote Inpatient Coder Referral Reason: Care coordination Case Type: Transition Care Management Risk Score: -- Case Status: Enrolled (July 27, 2023) Date Assigned: July 22, 2023 Assigned By: Omer Thompson Date Enrolled: July 27, 2023 Assigned Primary Personnel: Omer Thompson Assigned Secondary Personnel: -- Case Physician: Silviano Todd MD Problems Ongoing Abdominal pain Anxiety Arthralgia COVID-19 Diverticula of colon DVT (deep venous thrombosis) Shortness of breath Thyroiditis, subacute Historical Blood clotting disorder Irregular Procedure/Surgical History Cardiac arrhythmia, section, Oophorectomy, T and A (tonsillectomy and adenoidectomy) postoperative education. Home Medications Albuterol (Eqv-ProAir HFA) 90 mcg/inh inhalation aerosol, 2 puff(s), Inhalation, q4hr, PRN budesonide-formotero l 160 mcg-4.5 mcg/inh Inh Aer w/adapter, See Instructions venlafaxine 37.5 mg Cap-ER, See Instructions Xarelto, 20 mg, Oral, qPM Allergies Eggs (Unknown) Social History Tobacco Former smoker, quit more than 30 days ago Tobacco Use:. Cigarettes, 02/02/2023 Family History COPD: Mother. Congenital heart disease: Brother. Diabetes mellitus type 1: Grandparent. Heart disease: Mother. Primary malignant neoplasm of brain: Grandparent. Screenings and Assessments 07/27/23 13:20:00 Result Name Value Comment Phone Call Monitoring Consent Agreed to continue call Phone Verification Patient Information Full name, street address and date of verified CM Program Enrollment Provides verbal consent for enrollment Goals and Interventions Care Plan Progress Note TCM#2- patient states she is doing well. Medications reviewed with patient, EHR, and CN. States she has a central line and is receiving TPN and is on a full liquid diet. Patient has a drain present and notes only 1-2 cc present in drain this am. Down from 10 cc the previous day. Patient notes she was prescribed ATB therapies, notes completed 07/26/23. Patient has follow up scheduled with Joseph Peters Colorectal surgeon on 08/09/2023. Patient notes home health nurse comes to home each week to change central line dressing on . Patient denies any pain. Notes she has been pain free since she left the hospital. Patient has BM 1 or 2 times per day. Note BM's are loose, r/t to current diet. Patient denies any urinary system issues. Patient notes she is sleeping 'good.' Patient requesting refills on albuterol inhaler (proposed to PCP.) Patient denies any further questions or concerns. Communication Events Date: July 27, 2023 Method: Phone call Type: Outbound Duration (min): 7 Outcome: Case discussion Contact Type: development coordinator Contact Name: Omer Thompson Notes: TCM#1- returned missed call to patient- see tcm note. Created By: Omer Thompson Date: July 25, 2023 Method: Phone call Type: Outbound Duration (min): 1 Outcome: Left message-voicemail Contact Type: development coordinator Contact Name: Omer Thompson Notes: TCM#1- Third attmept to contact patient, unable to contact letter sent, see pt summary. Created By: Omer Thompson Date: July 22, 2023 Method: Phone call Type: Outbound Duration (min): 1 Outcome: Left message-voicemail Contact Type: development coordinator Contact Name: Omer Thompson Notes: TCM#1- no answer, left vm for return call. Created By: Omer Thompson Date: July 21, 2023 Method: Phone call Type: Outbound Duration (min): 1 Outcome: Left message-voicemail Contact Type: development coordinator Contact Name: Omer Thompson Notes: TCM#1- attempted to reach patient, no answer, left vm for return call. Created By: Omer Thompson [facility] Provider Letteron 07-25-2023 Provider Letter July 25, 2023 [address] [place] [address] [address] 1980 Dear Сергей , We have been trying to reach you with no success. It is important that you return our call regarding your recent hospital discharge upon receiving this letter. Also, at the time of your call, please provide us with your current information. Thank you for your prompt attention to this matter. Sincerely, Omer Garcia RN, Senior [employer] [phone] [facility] ED Note-Physicianon 07-12-19 ED Note-Physician [id number] #1.00TIFF [facility] RAD - CT Reporton 07-12-2023 RAD - CT Report [id number] #1.00TIFF [facility] Consultation Noteon 06-17-19 Consultation Note [id number] #1.00TIFF [facility] Discharge Documentationon Discharge Documentation [id number] #1.00TIFF [facility] ED Note-Physicianon 05-18-20 ED Note-Physician [id number] #1.00TIFF [facility] Outside Hospital Correspo ndenceon 05-18-2023 Outside Hospital Correspondence [id number] #1.00TIFF [facility] RAD - Ultrasound Reporton RAD - Ultrasound Report [id number] #1.00TIFF [facility] Admission Noteon 05-09-2023 Admission Note [id number] #1.00TIFF [facility] Discharge Documentationon Discharge Documentation [id number] #1.00TIFF Normal [facility] Operative Reporton Operative Report [id number] #1.00TIFF Normal [facility] ED Note-Physicianon 04-14-20 ED Note-Physician [id number]# 1.00TIFF Normal [facility] RAD - Ultrasound Reporton RAD - Ultrasound Report [id number]# 1.00TIFF Normal [facility] Consultation Noteon 03-31-20 Consultation Note [id number] #1.00TIFF [facility] Consultation Note [id number] #1.00TIFF [facility] RAD - CT Reporton 02-22-2023 RAD - CT Report [id number] #1.00CD:127 Normal [facility] RAD - CT Reporton 02-09-2023 RAD - CT Report [id number] #1.00CD:127 [facility] Ambulatory Visit Summaryon 0 02-02-2023 Ambulatory Visit Summary LYBAM DUNNCARMELO Cardenas :1980 Visit Date:02/02/2023 Ambulatory Visit Instructions Your [...] treatment for. Blood clotting disorder Irregular Normal [facility] Medicine Office/Clini c Noteon 02-02-2023 Family Medicine [...] , acel/tetanus adult 05/03/2016 Given Normal [facility] Comment on above: Result Comment: Elec tronically Signed By: Perez LIU, Silviano Orlando\Date and Time Signed: 02/02/23 14:28 EDT Covid-19 PCR ([facility])on SARS-CoV-2 (COVID-19) RNA ANGIE+probe Ql (Unsp spec) Not detected Normal NOT DETECTED [facility] Comment on above: Result Comment: This test is not yet approved or cleared by the [place] FDA. When there are no FDA-approved or cleared tests available, and other criteria are met, FDA can make tests available under an emergency access mechanism called an Emergency Use Authorization (EUA). The EUA for this test is supported by the [employer] Installer of Health and Human Service's (HHS's) declaration [...] consistent with SARS-CoV-2. Performed By: #### [facility] #### [facility] [address] [place] [address] Dr. Heath Baig Vital Signs Date Time Vital Sign Value Performing Clinician Facility 03-11-2022 11:00-0400 Body height 180.34 cm Alice Cota Other [facility] Other 03-11-2022 11:00-0400 Body mass index (BMI) [Ratio] 44.35 kg/m2 Alice Cota Other [facility] Other 03-11-2022 11:00-0400 Body temperature 97.6 [degF] Alice Cota Other [facility] Other 03-11-2022 11:00-0400 Body weight 144.24 kg Alice Cota Other [facility] Other 03-11-2022 11:00-0400 Diastolic blood pressure 84 mm[Hg] Alice Pooleault Other [facility] Other 03-11-2022 11:00-0400 Respiratory rate 18 /min Alice Pooleault Other [facility] Other 03-11-2022 11:00-0400 SaO2% (BldA) [Mass fraction] 98 % Alice Pooleault Other [facility] Other 03-11-2022 11:00-0400 Systolic blood pressure 139 mm[Hg] Alice Cota Other [facility] [facility] Other Encounters Encounter Date Encounter Type Care Provider Facility Start: 07-22-2023 ambulatory MD Silviano Todd Facil ity:[id number] Start: 04-06-2023 ambulatory MD Silviano Todd Facility : [facility] Start: 03-03-2023 ambulatory MD Silviano Todd Facility :[facility] Start: 02-02-2023 End: 02-03-2023 ambulatory MD Silviano Todd Facility:[facility] Enriqueta renuka Start: 03-14-2022 End: 03-14-2022 ambulatory ZHANE REES Facility: Start: 03-11-2022 End: 03-11-2022 ambulatory Alice Cota Other [facility] Other Start: 03-11-2022 Office outpatient ne w 20 minutes Alice Cota [facility] Start: 06-01-2021 End: 06-01-[address] EBEN DE LA CRUZ Facility:[facility] Payers Date Payer Category Payer Unknown [id number] 2.16.84 [id number] 1980 Unknown [id number] 2.16.84 [id number] 1980 Unknown [id number] 2.16.8 [id number] 1980 Unknown [id number] 2.16.8 [id number] 1957 [facility] [id number] 1957 Unknown [id number] Social History Date Type Detail Facility Sex Assigned At [facility] Other Discharge summary note 07-22-2023 Note Date & Type Note Facility 07-22-2023 Note [id number] #1.00TIFF [facility] Evaluation note 03-11-2022 Note Date & Type Note Facility 03-11-2022 Evaluation note Encounter Date Diagnosis Assessment Notes Feb, Infected tooth (ICD-10 - K04.7) Take medications as directed.Highly encourage patient to contact dentist LALITHA for further treatment of infection. Do not take OTC medications like ibuprofen with prescriptions [facility] Other History general Narrative - Reported Note Date & Type Note Facility History general Narrative - Reported Type Medical History WPW-HEART Medical History chronic depression Medical History anxiety Surgical History Tonsillectomy Surgical History D&C Surgical History Surgical History 3 [facility] [employer] Other Summary Purpose Family History No Family History Records FoundNo Family History Records Found Advance Directives No Advanced Directives Records FoundNo Advanced Directives Records Found Additional Source Comments REASON FOR VISIT (unrecogniz ed section and content) POSS TOOTH INFECTION INFORMATION SOURCE (unrecogn ized section and content) DATE CREATED AUTHOR 05/21/2022 [facility] DATE CREATED AUTHOR AUTHOR'S JOHN ATION 08/01/2023 [facility] FOR RECORDS PERTAINING TO PATIENTS WHO ARE [...] BE BASED ON THE PRIMARY CLINICAL RECORDS. [facility] [employer] provides no warranty or guarantee of the accuracy or completeness of information in this document.
[2023-08-04 11:48] LABS: Hematocrit 36.6 % (36.0-48.0); Hemoglobin 11.6 g/dL (12.0-16.0); Mean Corpuscular HGB Conc 31.7 g/dL (29.9-35.2); Mean Corpuscular Volume 88.2 fL (81.0-99.0); Mean Platelet Volume 10.4 fL (9.5-13.5); Neutrophils Percent Auto 63.4 % (43.0-75.0); Platelet Count 188 10^3/uL (150-450); Red Blood Count 4.15 10^6/uL (4.20-5.40); Red Cell Distribution Width 15.6 % (11.0-15.0); White Blood Count 7.8 10^3/uL (4.0-11.0)
[2023-08-04 11:49] LABS: Basophils Absolute Auto 0.1 10^3/uL (0.0-0.1); Basophils Percent Auto 0.9 % (0.2-2.0); Eosinophils Absolute Auto 0.6 10^3/uL (0.0-0.7); Immature Granulocytes Abs Auto 0.05 10^3/uL (0.00-0.03); Immature Granulocytes Pct Auto 0.6 % (0.0-0.5); Lymphocytes Absolute Auto 1.7 10^3/uL (1.2-3.8); Lymphocytes Percent Auto 22.1 % (20.5-60.0); Monocytes Absolute Auto 0.4 10^3/uL (0.3-0.8); Neutrophils Absolute Auto 4.9 10^3/uL (1.4-6.5)
[2023-08-04 13:14] LABS: Alanine Aminotransferase 19 U/L (14-59); Albumin Globulin Ratio 0.6; Albumin Level 2.8 g/dL (3.4-5.0); Alkaline Phosphatase 81 U/L (46-116); Anion Gap 15.6; Aspartate Amino Transferase 21 U/L (15-37); Bilirubin Total 0.3 mg/dL (0.2-1.0); Calcium 8.5 mg/dL (8.5-10.1); Carbon Dioxide 23.6 mmol/L (21.0-32.0); Chloride 104 mmol/L (98-107); Estimated GFR (African America >60 (>=60); Estimated GFR (Non-African Ame >60 (>=60); Globulin 4.6 g/dL; Glucose 102 mg/dL (74-106); Magnesium 1.7 mg/dL (1.8-2.4); Phosphorus 3.2 mg/dL (2.6-4.7); Potassium 4.2 mmol/L (3.5-5.1); Sodium 139 mmol/L (136-145); Total Protein 7.4 g/dL (6.4-8.2); Triglycerides 99 mg/dL (<=150)
== END 2023-08-04 09:54 | disposition home or self-care (01) ==
LOC: LAB 09:53
PROVIDERS: PCP Family Medicine; Visit Provider Family Medicine
DX: Z79.899 Other long term (current) drug therapy (principal)
CPT/HCPCS: 36415; 80053; 83735; 84100; 84478; 85025

== ENCOUNTER 2023-08-11 11:17 | Outpatient (REF) | payer BC, SELFPAY ==
[2023-08-11 11:53] LABS: Basophils Absolute Auto 0.1 10^3/uL (0.0-0.1); Basophils Percent Auto 1.3 % (0.2-2.0); Eosinophils Absolute Auto 1.2 10^3/uL (0.0-0.7); Eosinophils Percent Auto 10.6 % (0.9-7.0); Hematocrit 32.5 % (36.0-48.0); Hemoglobin 10.4 g/dL (12.0-16.0); Immature Granulocytes Abs Auto 0.13 10^3/uL (0.00-0.03); Immature Granulocytes Pct Auto 1.2 % (0.0-0.5); Lymphocytes Absolute Auto 2.4 10^3/uL (1.2-3.8); Lymphocytes Percent Auto 21.1 % (20.5-60.0); Mean Corpuscular Volume 87.6 fL (81.0-99.0); Mean Platelet Volume 10.7 fL (9.5-13.5); Monocytes Absolute Auto 0.5 10^3/uL (0.3-0.8); Monocytes Percent Auto 4.7 % (1.7-12.0); Neutrophils Absolute Auto 6.8 10^3/uL (1.4-6.5); Neutrophils Percent Auto 61.1 % (43.0-75.0); Platelet Count 182 10^3/uL (150-450); Red Blood Count 3.71 10^6/uL (4.20-5.40); Red Cell Distribution Width 15.3 % (11.0-15.0); White Blood Count 11.2 10^3/uL (4.0-11.0)
[2023-08-11 12:41] LABS: Alanine Aminotransferase 18 U/L (14-59); Albumin Globulin Ratio 0.6; Albumin Level 2.7 g/dL (3.4-5.0); Alkaline Phosphatase 94 U/L (46-116); Anion Gap 12.3; Aspartate Amino Transferase 18 U/L (15-37); BUN Creatinine Ratio 19.1; Bilirubin Total 0.3 mg/dL (0.2-1.0); Calcium 8.2 mg/dL (8.5-10.1); Carbon Dioxide 23.8 mmol/L (21.0-32.0); Chloride 103 mmol/L (98-107); Estimated GFR (African America >60 (>=60); Estimated GFR (Non-African Ame >60 (>=60); Globulin 4.4 g/dL; Glucose 147 mg/dL (74-106); Magnesium 1.8 mg/dL (1.8-2.4); Phosphorus 3.2 mg/dL (2.6-4.7); Potassium 4.1 mmol/L (3.5-5.1); Sodium 135 mmol/L (136-145); Total Protein 7.1 g/dL (6.4-8.2); Triglycerides 89 mg/dL (<=150)
== END 2023-08-11 11:18 | disposition home or self-care (01) ==
LOC: LAB 11:17
PROVIDERS: PCP Family Medicine
DX: Z79.899 Other long term (current) drug therapy (principal); A49.01 Methicillin susceptible Staphylococcus aureus infection, unspecified site; K57.32 Diverticulitis of large intestine without perforation or abscess without bleeding; E43 Unspecified severe protein-calorie malnutrition
CPT/HCPCS: 36415; 80053; 83735; 84100; 84478; 85025